=== PATIENT | female | born 1945 | race African-American/Black ===

== ENCOUNTER → 2017-06-30 | Day surgery (SDC) | payer BC ==
[~2017-06-30] MED LIST: CONTRAST GIVEN MC; PROPOFOL 40 ML IV
[2017-06-30 11:12] LABS: CREATINE KINASE 31 U/L (26-192)
[2017-06-30 11:12] LABS: BLOOD UREA NITROGEN 5 mg/dL (7-20)
[2017-06-30 12:01] LABS: GFR 85.3
[2017-06-30 12:01] LABS: CREATININE 0.8 mg/dL (0.6-1.0)
[2017-06-30] MEDS: IOHEXOL 240 MG/ML 50ML VIAL. PO ×2 (12:10)
[2017-06-30] MEDS: IOHEXOL 300 MG/ML 100ML VIAL. IV ×2 (12:10)
[2017-07-01 11:20] LABS: CEA 8.1 ng/mL (0.0-4.7)
== END | disposition home or self-care (01) ==
LOC: SURG 09:07
DX: K62.1 Rectal polyp (principal); K57.30 Diverticulosis of large intestine without perforation or abscess without bleeding; E78.00 Pure hypercholesterolemia, unspecified; I10 Essential (primary) hypertension; F41.9 Anxiety disorder, unspecified; Z87.39 Personal history of other diseases of the musculoskeletal system and connective tissue
CPT/HCPCS: 36415; 70491; 71260; 74177; 82378; 82550; 82565; 84520; 88305; J2704

== ENCOUNTER 2017-07-29 07:53 | Inpatient (IN) | payer BC ==
[~2017-07-29 07:53] MED LIST changes: -CONTRAST GIVEN MC; +HYDROmorphone 2 MG/ML VIAL IV; +LIDOCAINE 1% PF 2 ML VIAL. ID; +ONDANSETRON PF 4 MG/2 ML VIAL. IV; -PROPOFOL 40 ML IV; +fentaNYL PF VIAL 100 MCG/2 ML VIAL IV
[2017-07-29] MEDS ORDERED: PROPOFOL 20 ML IV (08:53)
[2017-07-29] MEDS ORDERED: LIDOCAINE 1% PF 5 ML VIAL. (08:53)
[2017-07-29] MEDS ORDERED: ROCURONIUM 50 MG/5 ML VIAL. ×2 (08:53→11:02)
[2017-07-29] MEDS ORDERED: DEXAMETHASONE SOD PHOS 20 MG/5 ML VIAL. (08:54)
[2017-07-29] MEDS ORDERED: ONDANSETRON PF 4 MG/2 ML VIAL. (08:54)
[2017-07-29] MEDS: IV RINGERS,LACTATED 1000ML 1,000 ML IV (08:58)
[2017-07-29 09:02] LABS: ADD MAN DIFF? NO
[2017-07-29] MEDS ORDERED: fentaNYL PF VIAL 100 MCG/2 ML VIAL ×4 (09:02→13:30)
[2017-07-29 09:15] LABS: ANION GAP 9 (6-14); BLOOD UREA NITROGEN 4 mg/dL (7-20); CARBON DIOXIDE 29 mmol/L (21-32); CHLORIDE 92 mmol/L (98-107); CREATININE 0.8 mg/dL (0.6-1.0); GFR 85.3; GLUCOSE 113 mg/dL (70-99); POTASSIUM 3.7 mmol/L (3.5-5.1); SODIUM 130 mmol/L (136-145)
[2017-07-29 09:16] LABS: BASO % 0 % (0-3); EOS # 0.1 x10^3/uL (0.0-0.7); EOS % 2 % (0-3); HEMATOCRIT 29.5 % (36.0-47.0); LYMPH # 0.9 x10^3/uL (1.0-4.8); LYMPH % 19 % (24-48); MEAN CORPUSCULAR HEMOGLOBIN 35 pg (25-35); MEAN CORPUSCULAR HGB CONC 34 g/dL (31-37); MEAN CORPUSCULAR VOLUME 103 fL (79-100); MONO # 0.6 x10^3/uL (0.0-1.1); MONO % 13 % (0-9); NEUT # 3.2 x10^3uL (1.8-7.7); NEUT % 66 % (31-73); PLATELET COUNT 201 x10^3/uL (140-400); RED BLOOD COUNT 2.88 x10^6/uL (3.50-5.40); RED CELL DISTRIBUTION WIDTH 15.4 % (11.5-14.5); WHITE BLOOD COUNT 4.8 x10^3/uL (4.0-11.0)
[2017-07-29] MEDS ORDERED: SUCCINYLCHOLINE 200 MG/10 ML VIAL. (10:00)
[2017-07-29] MEDS ORDERED: NEOSTIGMINE 10 MG/10 ML VIAL. (11:32)
[2017-07-29] MEDS ORDERED: GLYCOPYRROLATE 1 MG/5 ML VIAL. (11:33)
[2017-07-29] MEDS ORDERED: oxyCODONE/APAP 5/325 1 TAB TABLET PO (12:00)
[2017-07-29] MEDS ORDERED: 0.9 % SODIUM CHLORIDE 10 ML DISP.SYRIN. IV (12:00)
[2017-07-29] MEDS: KETOROLAC 15 MG/ML VIAL. IV ×2 (12:00→17:42)
[2017-07-29] MEDS ORDERED: MORPHINE SULFATE 4 MG/ML DISP.SYRIN. (12:12)
[2017-07-29] MEDS: MORPHINE SULFATE 4 MG/ML DISP.SYRIN. IV ×6 (12:13→21:03)
[2017-07-29] MEDS ORDERED: PROCHLORPERAZINE 10 MG/2 ML VIAL. (12:13)
[2017-07-29] MEDS: PROCHLORPERAZINE 10 MG/2 ML VIAL. IV (12:19)
[2017-07-29] MEDS: fentaNYL PF VIAL 100 MCG/2 ML VIAL IV ×4 (12:32→14:02)
[2017-07-29] MEDS: IV DEXTROSE 5%-LACT RINGERS 1,000 ML IV (17:36)
[2017-07-30] MEDS: KETOROLAC 15 MG/ML VIAL. IV ×5 (00:29→23:36)
[2017-07-30] MEDS: IV DEXTROSE 5%-LACT RINGERS 1,000 ML IV ×2 (06:23→23:37)
[2017-07-30 06:49] LABS: ADD MAN DIFF? NO
[2017-07-30 06:53] LABS: BASO % 0 % (0-3); EOS % 0 % (0-3); HEMATOCRIT 26.9 % (36.0-47.0); HEMOGLOBIN 9.2 g/dL (12.0-15.5); LYMPH # 0.8 x10^3/uL (1.0-4.8); LYMPH % 16 % (24-48); MEAN CORPUSCULAR HEMOGLOBIN 35 pg (25-35); MEAN CORPUSCULAR HGB CONC 34 g/dL (31-37); MEAN CORPUSCULAR VOLUME 103 fL (79-100); MONO # 0.6 x10^3/uL (0.0-1.1); MONO % 11 % (0-9); NEUT # 3.7 x10^3uL (1.8-7.7); NEUT % 73 % (31-73); PLATELET COUNT 172 x10^3/uL (140-400); RED BLOOD COUNT 2.61 x10^6/uL (3.50-5.40); RED CELL DISTRIBUTION WIDTH 15.2 % (11.5-14.5); WHITE BLOOD COUNT 5.1 x10^3/uL (4.0-11.0)
[2017-07-30] MEDS: MORPHINE SULFATE 4 MG/ML DISP.SYRIN. IV (17:41)
[2017-07-31] MEDS: IV DEXTROSE 5%-LACT RINGERS 1,000 ML IV (03:49)
[2017-07-31] MEDS: KETOROLAC 15 MG/ML VIAL. IV (05:50)
[2017-07-31] MEDS: MORPHINE SULFATE 4 MG/ML DISP.SYRIN. IV (11:03)
[2017-07-31] MEDS ORDERED: ACETAMINOPHEN PO (15:45)
[2017-07-31] MEDS ORDERED: DEXTROMETHORPHAN PO (15:45)
[2017-07-31] MEDS ORDERED: DOXYLAMINE PO (15:45)
[2017-07-31] MEDS ORDERED: [UNRECOGNIZED DRUG - OTHER] PO (15:45)
[2017-07-31] MEDS: hydroCHLOROthiazide 12.5 MG CAPSULE PO (16:00)
[2017-07-31] MEDS: ALPRAZolam 0.5 MG TABLET PO (16:45)
[2017-07-31] MEDS: LISINOPRIL 20 MG TABLET PO (16:46)
[2017-08-01] MEDS: IV DEXTROSE 5%-LACT RINGERS 1,000 ML IV ×2 (03:21→06:29)
[2017-08-01] MEDS: hydroCHLOROthiazide 12.5 MG CAPSULE PO (08:43)
[2017-08-01] MEDS: oxyCODONE/APAP 5/325 1 TAB TABLET PO ×2 (08:43→16:59)
[2017-08-01] MEDS: LISINOPRIL 20 MG TABLET PO (08:43)
[2017-08-02] MEDS: IV DEXTROSE 5%-LACT RINGERS 1,000 ML IV ×3 (08:18→21:39)
[2017-08-02] MEDS: hydroCHLOROthiazide 12.5 MG CAPSULE PO (08:21)
[2017-08-02] MEDS: LISINOPRIL 20 MG TABLET PO (08:21)
[2017-08-02] MEDS: oxyCODONE/APAP 5/325 1 TAB TABLET PO ×2 (08:22→16:43)
[2017-08-02] MEDS: ALPRAZolam 0.5 MG TABLET PO (16:44)
[2017-08-03] MEDS: hydroCHLOROthiazide 12.5 MG CAPSULE PO (08:46)
[2017-08-03] MEDS: LISINOPRIL 20 MG TABLET PO (08:46)
[2017-08-03] MEDS: ONDANSETRON PF 4 MG/2 ML VIAL. IV (08:48)
[2017-08-03] MEDS: ALPRAZolam 0.5 MG TABLET PO ×2 (09:05→17:24)
[2017-08-03] MEDS: oxyCODONE/APAP 5/325 1 TAB TABLET PO (09:05)
[2017-08-03] MEDS: IV DEXTROSE 5%-LACT RINGERS 1,000 ML IV (11:10)
[2017-08-04] MEDS: IV DEXTROSE 5%-LACT RINGERS 1,000 ML IV ×2 (04:35→14:29)
[2017-08-04] MEDS: hydroCHLOROthiazide 12.5 MG CAPSULE PO (08:14)
[2017-08-04] MEDS: LISINOPRIL 20 MG TABLET PO (08:15)
[2017-08-05] MEDS: IV DEXTROSE 5%-LACT RINGERS 1,000 ML IV ×2 (03:49→17:09)
[2017-08-05] MEDS: hydroCHLOROthiazide 12.5 MG CAPSULE PO (08:24)
[2017-08-05] MEDS: LISINOPRIL 20 MG TABLET PO (08:24)
[2017-08-06] MEDS: hydroCHLOROthiazide 12.5 MG CAPSULE PO (08:47)
[2017-08-06] MEDS: LISINOPRIL 20 MG TABLET PO (08:47)
== END 2017-08-06 11:10 | disposition home or self-care (01) | DRG 330 ==
LOC: OPSVCIP 07:53 → 4 NORTH 14:02
PROC: 0DTN0ZZ Resection of Sigmoid Colon, Open Approach (ICD-10-PCS; principal; 2017-07-29 09:30)
DX: C18.7 Malignant neoplasm of sigmoid colon (principal); E87.1 Hypo-osmolality and hyponatremia; C80.1 Malignant (primary) neoplasm, unspecified; D63.0 Anemia in neoplastic disease; D63.8 Anemia in other chronic diseases classified elsewhere
CPT/HCPCS: 36415; 80048; 85025; 88309; 97110-GP; 97116-GP; 97162-GP; 97166-GO; 97530-GP; 97535-GO; J0330; J0694; J0780; J1100; J1885; J2270; J2405; J2704; J2710; J3010; J3490; J7120

== ENCOUNTER → 2017-12-24 | Outpatient (CLI) | payer BC ==
[2017-08-06 08:47] VITALS: BP 133/68
[~2017-12-24] MED LIST changes: +ALPR0.5T6 PO; +CONTRAST GIVEN. MC PRN; +D ME PO; -HYDROmorphone 2 MG/ML VIAL IV; +IOHEXOL 300 MG/ML 100ML VIAL. IV ONE; -LIDOCAINE 1% PF 2 ML VIAL. ID; +LISI1TAB5 PO; -ONDANSETRON PF 4 MG/2 ML VIAL. IV; +OXYC-323 PO; -fentaNYL PF VIAL 100 MCG/2 ML VIAL IV; +nyquil
--- NOTE | 2017-12-24 12:39 | RAD ---
CLINICAL HISTORY: F/U COLON CA AND LUNG NODULE PREV SENT INJ 75ML OMNI 300 . COMPARISON: 06/30/2017 TECHNIQUE: CT of the chest following the administration of 75 mL of Omnipaque 300 intravenous contrast. Coronal and sagittal reformatted images were generated. ---PQRS compliance statement - One or more of the following individualized dose reduction techniques were utilized for this study: 1. Automated exposure control 2. Adjustment of the mA and/or kV according to patient size 3. Use of iterative reconstruction technique--- FINDINGS: The heart is not enlarged. No pericardial effusion. No mediastinal or hilar lymphadenopathy. No axillary lymphadenopathy. No pleural effusion or pneumothorax. Previously seen bibasilar parenchymal opacities have significantly improved. A 3 mm middle lobe lung nodule (series 2 image 38) is grossly stable to prior exam 06/30/2017. A 4 mm right middle lobe lung nodule (series 2 image 36) previously measured 3 mm. No definite new lung nodule or mass is seen. Upper abdomen: Gallstones are seen. Degenerative changes of the spine are seen. Otherwise visualized osseous structures are unremarkable. IMPRESSION: 1. The previously seen middle lobe lung nodules are essentially stable in size. Recommend risk stratification and appropriate follow-up, consider 6 months. 2. Cholelithiasis Electronically signed by: Jason Encinas MD (12/24/2017 12:36 PM) [facility]
== END | disposition home or self-care (01) ==
LOC: CT 10:18
PROVIDERS: ATTEND Internal Medicine Hematology & Oncology
DX: C18.7 Malignant neoplasm of sigmoid colon (principal); K80.80 Other cholelithiasis without obstruction
CPT/HCPCS: 71260; Q9967

== ENCOUNTER → 2018-01-07 | Outpatient (CLI) | payer BC ==
[2017-08-06 08:47] VITALS: BP 133/68
[~2018-01-07] MED LIST changes: -CONTRAST GIVEN. MC PRN; -IOHEXOL 300 MG/ML 100ML VIAL. IV ONE
[2018-01-07] MEDS: IOHEXOL 240 MG/ML 50ML VIAL. PO ONE (09:45)
[2018-01-07] MEDS: IOHEXOL 300 MG/ML 100ML VIAL. IV ONE (11:15)
--- NOTE | 2018-01-07 12:52 | RAD ---
CT abdomen and pelvis with contrast History: Restaging sigmoid colon cancer Technique: After the administration of oral and intravenous contrast, CT imaging was performed of the abdomen and pelvis. Multiplanar images are reviewed. Exposure: One or more of the following individualized dose reduction techniques were utilized for this examination: 1. Automated exposure control 2. Adjustment of the mA and/or kV according to patient size 3. Use of iterative reconstruction technique. Comparison: 06/30/2017 Findings: There are a couple of small right middle lobe nodules, more superior focus 0.3-0.4 cm larger as previously 0.1 cm in size. Another focus is more similar in appearance. There are some small-containing Bochdalek hernias bilaterally. There is no new abnormality identified of the liver, spleen, pancreas. There is again cholelithiasis. Both kidneys enhance, no hydronephrosis. There is no adrenal nodularity. Bowel is not significantly dilated. There is again moderate to severe colonic diverticulosis. There is nonspecific relative wall thickening of the mid sigmoid colon. Normal appendix is visualized. There is no free air or free fluid. Previously seen density of the right pelvis is less apparent on this exam, probably component of the adnexa. There is similar 1 cm transverse by 1.5 cm AP focus of somewhat oblong density in the lateral right pelvis as best seen axial image 66 series 2, previously about 2.2 cm AP by 1 cm transverse, overall fairly similar. There is degenerative disc disease greatest L4-5 and L5-S1. There is grade 1 anterior spondylolisthesis L4-5. There is multilevel lumbar facet degenerative change. There is probable moderate spinal stenosis L4-5 and to lesser degree at L3-4. Impression: 1. Focus of oblong density lateral right pelvis is fairly similar, another focus of low density more anteriorly in the right pelvis less apparent. There is no new significant lymphadenopathy or new abnormality of the liver or adrenal glands. There is again colonic diverticulosis. There is some nonspecific relative wall thickening of the mid sigmoid colon. 2. There are again some small right middle lobe pulmonary nodules, one of which is larger in the interval. Given the larger nodule, dedicated chest CT to evaluate for other nodules is recommended. 3. There is again cholelithiasis. Electronically signed by: Aguila Remy MD (01/07/2018 12:48 PM) [facility]
== END | disposition home or self-care (01) ==
LOC: CT 09:33
PROVIDERS: ATTEND Internal Medicine Hematology & Oncology
DX: K80.20 Calculus of gallbladder without cholecystitis without obstruction (principal); K57.30 Diverticulosis of large intestine without perforation or abscess without bleeding; M51.37 Other intervertebral disc degeneration, lumbosacral region; M43.16 Spondylolisthesis, lumbar region; I10 Essential (primary) hypertension; E78.00 Pure hypercholesterolemia, unspecified; Z86.2 Personal history of diseases of the blood and blood-forming organs and certain disorders involving the immune mechanism; Z87.39 Personal history of other diseases of the musculoskeletal system and connective tissue
CPT/HCPCS: 74177; Q9966; Q9967

== ENCOUNTER → 2018-04-08 | Outpatient (CLI) | payer BC ==
[2017-08-06 08:47] VITALS: BP 133/68
[~2018-04-08] MED LIST changes: -OXYC-323 PO; +OXYC1TAB15 PO
--- NOTE | 2018-04-08 13:57 | KCIC ---
Bilateral digital screening mammograms: Reason for examination: Routine screening. Comparison is made to previous studies dated 03/11/2017 and 01/19/2015. Interpretation was made with the benefit of CAD. The skin and nipples show no abnormalities. No abnormal axillary lymph nodes are seen. The breast parenchyma shows scattered fibroglandular density. (Breast density: Category B.) There are intramammary lymph nodes again seen. There are no new dominant masses, suspicious calcifications or architectural distortions. Impression: No evidence of malignancy. Recommend routine screening. BI-RADS Category 2: Benign. "Our facility is accredited by the [employer] Mammography Program." This patient's information has been entered into a reminder system for the patient to be notified with the results of her examination and a target date for the next mammogram. Electronically signed by: Porsche Sommers MD (04/08/2018 1:54 PM) [facility]
== END | disposition home or self-care (01) ==
LOC: KCIC MAMMO 10:02
PROVIDERS: ATTEND Family Medicine
DX: Z12.31 Encounter for screening mammogram for malignant neoplasm of breast (principal)
CPT/HCPCS: 77067

== ENCOUNTER → 2018-04-20 | Outpatient (CLI) | payer BC ==
[2017-08-06 08:47] VITALS: BP 133/68
[~2018-04-20] MED LIST changes: +CONTRAST GIVEN. MC PRN; +IOHEXOL 240 MG/ML 50ML VIAL. PO ONE; +IOHEXOL 300 MG/ML 100ML VIAL. IV ONE
--- NOTE | 2018-04-20 16:59 | RAD ---
Bone Scintigraphy - Whole Body: . Radiopharmaceutical: 25.4 mCi Tc-99m HDP I.V. History: History of colon cancer. Comparison: CT chest abdomen pelvis same day exam. Findings: Delayed anterior and posterior whole body bone scintigraphy was performed. Faint radiotracer uptake identified in the mid thoracic spine probably due to degeneration. Focal radiotracer identified in the bilateral midfoot region likely due to degeneration. Impression: Degenerative changes. No evidence of osteoblastic skeletal metastasis. Electronically signed by: Bhargav Damon MD (04/20/2018 4:55 PM) [place] [id number]
--- NOTE | 2018-04-21 10:34 | RAD ---
CT study of the chest and abdomen and pelvis with contrast Clinical indications: Colon cancer. Follow-up study. COMPARISON: December 24, [address] and January 07, 2018 CT abdomen and pelvis. TECHNIQUE: After IV infusion of 75 cc of Omnipaque 300, helical CT scanning of the chest and abdomen and pelvis was performed. GI contrast was administered per mouth. PQRS compliance Statement One or more of the following individualized dose reduction techniques were utilized for this study: 1. Automated exposure control 2. Adjustment of the mA and/or kV according to patient size 3. Use of iterative reconstruction technique CHEST CT: No enlarging thoracic lymphadenopathy is evident. The heart size mildly enlarged. No pericardial effusion is seen. Mild calcified atheromatous disease of coronary arteries is seen. No focal aneurysmal dilatation or dissection of the thoracic aorta is seen. No pleural effusion or pneumothorax is seen. There is a lung nodule within the lateral segment of the right middle lobe seen on image 34 and series 2 which measures 8 mm in size. This measured 4 mm in size on the previous study and therefore has increased in size. Adjacent to it is a smaller subpleural nodule which measures 4 mm and is stable. There is some nodular scarring within the medial segment of the right middle lobe which is stable. There is some mild scarring within the posterior costophrenic angle on the right side which is stable. There is some mild left lung base linear scarring which is stable. There is a focal hernia of the posterior left hemidiaphragm containing only fat in this area which is stable. There is some mild nodular scarring within the inferior segment lingula which is stable. No new lung nodule or new lung mass or new consolidative lung infiltrate is seen. The proximal bronchial tree is patent. No lytic process is seen. IMPRESSION: Increase in right middle lobe lung nodule since December 24, 2017. It now measures 8 mm. No new lung nodules or lung infiltrates are seen. Mild cardiomegaly. Mild calcified atheromatous disease of the coronary arteries. ABDOMEN AND PELVIS CT: Diffuse fatty infiltration of the liver is seen. There is a new hypodense nodule within the posterior segment of the right lobe of liver measuring 2.3 cm in size. The spleen is not enlarged. Pancreas is normal. Gallstones are seen within the gallbladder. No extrahepatic biliary ductal dilatation is seen. No adrenal mass is evident. No hydronephrosis or renal mass or perinephric fluid collection is seen on either side. Urinary bladder is not distended. No uterine mass or fibroid is evident. No dominant ovarian cyst or mass is seen. No focal aneurysmal dilatation of the abdominal aorta is seen. No enlarging abdominal or pelvic lymphadenopathy is evident. Again seen is a 1.5 cm nodule or lymph node within the lateral aspect of the right side of the pelvis seen on image 72 and series 4 which is unchanged from the previous study. No new or enlarging abdominal/pelvic lymphadenopathy is evident. Colonic diverticulosis is again evident. There is an increase in wall thickening of the hepatic flexure. There is focal wall thickening of the sigmoid colon which is chronic and has not changed significantly. This may be related to chronic diverticulosis with muscle hypertrophy. However, recommend colonoscopy if this has not been performed recently to evaluate these 2 areas. No obstructive bowel pattern is evident. No free air or free fluid or mesenteric edema is evident. No lytic process is seen. IMPRESSION: New 2.3 cm lesion of the right lobe of the liver consistent with metastatic disease. Wall thickening of the hepatic flexure and sigmoid colon. Recommend colonoscopy if this has not been performed recently. Stable right sided 1.5 cm pelvic lymph node. No enlarging or new abdominal/pelvic lymphadenopathy is seen. Cholelithiasis. Electronically signed by: Reji Richardson MD (04/21/2018 10:30 AM) [facility]
== END | disposition home or self-care (01) ==
LOC: NM 08:45
PROVIDERS: ATTEND Internal Medicine Hematology & Oncology
DX: K80.20 Calculus of gallbladder without cholecystitis without obstruction (principal); K57.30 Diverticulosis of large intestine without perforation or abscess without bleeding; I51.7 Cardiomegaly; K76.0 Fatty (change of) liver, not elsewhere classified; K76.89 Other specified diseases of liver; I25.10 Atherosclerotic heart disease of native coronary artery without angina pectoris; R59.0 Localized enlarged lymph nodes; Z85.038 Personal history of other malignant neoplasm of large intestine
CPT/HCPCS: 71260; 74177; 78306; 96374; A9503; Q9966; Q9967

== ENCOUNTER → 2018-04-26 | Day surgery (SDC) | payer BC, MEDICARE ==
[~2018-04-26] MED LIST changes: -CONTRAST GIVEN. MC PRN; +HYDR-3164 PO; +HYDROmorphone 2 MG/ML VIAL IV PRN; -IOHEXOL 240 MG/ML 50ML VIAL. PO ONE; -IOHEXOL 300 MG/ML 100ML VIAL. IV ONE; +IV RINGERS,LACTATED 1000ML 1,000 ML IV SCH; +LIDOCAINE 1% PF 2 ML VIAL. ID PRN; +LISI-334 PO; +LISI30TA4 PO; +MORPHINE SULFATE 2 MG/ML VIAL. IV PRN; +ONDANSETRON PF 4 MG/2 ML VIAL. IV PRN; +PROCHLORPERAZINE 10 MG/2 ML VIAL. IV PRN; +PROPOFOL 40 ML IV ONE; +fentaNYL PF VIAL 100 MCG/2 ML VIAL IV PRN
--- NOTE | 2018-04-26 13:34 | PDOC1 ---
History and Physical Date of Admission Date of Admission DATE: 04/26/18 TIME: 13:29 Source Source: Chart review, Patient History of Present Illness History of Present Illness 72 y/o female post-sigmoid resection for cancer 07/2017. T3 tumor due to direct extension, but negative LN's. Got no adjuvant chemoRx. Recent imaging with possible liver and/or lung mets. Also noted "mural thickening" near hepatic flexure. Here for investigation of this and to evaluate for anastomotic recurrence. No complaints. Past Medical History Cardiovascular: HTN, Hyperlipidemia Psych: Anxiety Past Surgical History Past Surgical History: Colon Resection, Other Family History Family History: No Significant Social History Smoke: No ALCOHOL: none Drugs: None Current Medications Current Medications Current Medications Propofol 40 ml @ As Directed STK-MED ONCE IV ; Start 04/26/18 at 12:50; Stop 04/26/18 at 12:51; Status DC Ondansetron HCl (Zofran) 4 mg PRN Q6HRS PRN IV NAUSEA/VOMITING; Start at 13:00; Stop 04/26/18 at 18:00 Fentanyl Citrate (Fentanyl 2ml Vial) 25 mcg PRN Q5MIN PRN IV MILD PAIN; Start 04/26/18 at 13:00; Stop 04/26/18 at 18:00 Fentanyl Citrate (Fentanyl 2ml Vial) 50 mcg PRN Q5MIN PRN IV MODERATE TO SEVERE PAIN; Start 04/26/18 at 13:00; Stop 04/26/18 at 18:00 Morphine Sulfate (Morphine Sulfate) 1 mg PRN Q10MIN PRN IV SEVERE PAIN; Start 04/26/18 at 13:00; Stop 04/26/18 at 18:00 Ringer's Solution 1,000 ml @ 30 mls/hr Q24H IV ; Start 04/26/18 at 12:58; Stop 04/27/18 at 00:57 Lidocaine HCl (Xylocaine-Mpf 1% 2ml Vial) 2 ml 1X PRN PRN ID IV START; Start 04/26/18 at 13:00; Stop 04/26/18 at 18:00 Hydromorphone HCl (Dilaudid) 0.5 mg PRN Q10MIN PRN IV SEV PAIN, Second choice; Start 04/26/18 at 13:00; Stop 04/26/18 at 18:00 Prochlorperazine Edisylate (Compazine) 5 mg PACU PRN PRN IV NAUSEA, MRX1; Start 04/26/18 at 13:00; Stop 04/26/18 at 18:00 Active Scripts Active Percocet 5-325 Mg Tablet (Oxycodone/Acetaminophen) 1 Each Tablet 1 Tab PO Q4- 6HRS Reported Nighttime Cold & Flu Liquid (D-Methorphan/Acetamin/Doxylamn) 355 Ml Liquid 0 PO PRN PRN Alprazolam 0.5 Mg Tablet 0.5 Mg PO PRN Q6HRS PRN Lisinopril-Hctz 20-12.5 Mg Tab (Lisinopril/Hydrochlorothiazide) 1 Each Tablet 1 Tab PO DAILY Allergies Allergies: Coded Allergies: No Known Drug Allergies (Unverified , 04/26/18) ROS Review of System Otherwise non-contributory. Physical Exam General: Alert, Oriented X3, Cooperative HEENT: EOMI Lungs: Clear to auscultation Heart: S1S2, RRR, no gallops, no murmurs Abdomen: Normal bowel sounds, Soft, No tenderness, No hepatosplenomegaly, No masses Rectal Exam: deferred Extremities: No cyanosis, No edema Skin: No significant lesion Neuro: Normal gait, Normal speech, Strength at 5/5 X4 ext, Normal tone, Sensation intact, Cranial nerves 3-12 NL, Reflexes 2+ Psych/Mental Status: Mental status NL, Mood NL Vitals Vitals Vital Signs Date Time Temp Pulse Resp B/P (MAP) Pulse Ox O2 Delivery O2 Flow Rate FiO2 04/26/18 13:02 97.7 87 20 98 97.7 VTE Prophylaxis Ordered VTE Prophylaxis Devices: No VTE Pharmacological Prophylaxi: No Assessment/Plan Assessment/Plan IMP: H/o colon cancer with abnormal imaging. PLAN: colonoscopy. SLIM TRENT MD Apr 26, 2018 13:34
--- NOTE | 2018-04-26 14:12 | PDOC4 ---
PROCEDURE Procedure EGD/biopsies Indication: h/o CRC post-resection/recent abnormal imaging. Meds: per anesthesia Findings: ANGEL normal. "Scope advanced to cecum. Mucosa normal. Multiple diverticula, hepatic flexure to sigmoid. Anastomosis in distal sigmoid with associated 5-6 mm polyp , biopsied off. Second polyp just distal to first, ~4mm, also biopsied off. Small internal hemorrhoids noted on retroflex. Exam otherwise normal, including hepatic flexure area. Isaac. well. IMP: Post colectomy Small polyps Diverticulosis Hemorrhoids REC: Await path. F/u in 2 weeks. Resume home meds, diet. Depending on course, consider repeat exam in 3-5 years; if advancing metastatic disease would not do. SLIM TRENT MD Apr 26, 2018 14:11
[2018-04-26 14:32] VITALS: BP 178/102
--- NOTE | 2018-04-27 14:10 | PATHOLOGY ---
[facility] Accession Number: [id number] . 01 Material submitted: . RECTOSIGMOID BIOPSY . 01 Clinical history: . Hx colon cancer . 02 Diagnosis: Colorectal biopsies, rectosigmoid colon: - Tubular adenomas. . ([facility]; 04/27/18) [facility]/04/27/2018 . 02 Comment: There is no high grade dysplasia or evidence of malignancy. . ([facility]:mm; 04/27/18) . 02 Electronically signed: . Karri Box MD, Pathologist NPI- [id number] . 01 Gross description: . Received in formalin labeled "Abanishe, Alana, recto-sigmoid BX," are multiple segments of [place] oca soft tissue measuring 1.3 x 0.5 x 0.1 cm in aggregate dimensions. The specimen is filtered and entirely submitted in cassette A1. ([facility]; 04/26/2018) TOB/TOB . 02 Pathologist provided ICD-10: D12.7 . 02 CPT . 198407 Specimen Comment: A courtesy copy of this report has been sent to Specimen Comment: [phone], . Specimen Comment: Report sent to / DR TRENT Specimen Comment: A duplicate report has been generated due to demographic updates. Performed at: 01 [facility] [address], [place] [id number] MD Luis Miguel Velazquez MD Phone: [phone] Performed at: 02 [facility] [address] [place], [place] [id number] MD Karri Box MD Phone: [phone]
== END | disposition home or self-care (01) ==
LOC: SURG 12:42
PROVIDERS: ATTEND Internal Medicine Gastroenterology
DX: Z08 Encounter for follow-up examination after completed treatment for malignant neoplasm (principal); D12.7 Benign neoplasm of rectosigmoid junction; K64.0 First degree hemorrhoids; K57.30 Diverticulosis of large intestine without perforation or abscess without bleeding; I10 Essential (primary) hypertension; E78.5 Hyperlipidemia, unspecified; F41.9 Anxiety disorder, unspecified; Z90.49 Acquired absence of other specified parts of digestive tract; Z98.890 Other specified postprocedural states; Z79.899 Other long term (current) drug therapy; Z98.0 Intestinal bypass and anastomosis status; Z85.038 Personal history of other malignant neoplasm of large intestine
CPT/HCPCS: 45380; 88305; J2704

== ENCOUNTER 2018-04-30 09:17 | Day surgery (SDC) | payer BC ==
[~2018-04-30] VITALS: Ht 154.9 cm; Wt 71.9 kg
[~2018-04-30 09:17] MED LIST changes: -HYDR-3164 PO; -PROPOFOL 40 ML IV ONE
[2018-04-30] MEDS ORDERED: HEPARIN for IV BOLUS 10,000 UNIT/10 ML VIAL. ONE (09:32)
[2018-04-30] MEDS ORDERED: BUPIVAC MPF-EPI 0.5%-1:200000 30 ML VIAL. ONE (09:32)
[2018-04-30] MEDS ORDERED: HEPARIN PF 500 UNIT/5 ML DISP.SYRIN. IV ONE (09:32)
[2018-04-30] MEDS ORDERED: BUPIVACAINE 0.25% 50 ML VIAL. ONE (09:35)
[2018-04-30] MEDS ORDERED: ONDANSETRON PF 4 MG/2 ML VIAL. ONE (10:18)
[2018-04-30] MEDS ORDERED: LIDOCAINE 2% PF Vial for OR 5 ML VIAL. ONE (10:18)
[2018-04-30] MEDS ORDERED: fentaNYL PF VIAL 100 MCG/2 ML VIAL ONE (10:18)
[2018-04-30] MEDS ORDERED: PROPOFOL 20 ML IV ONE (10:18)
[2018-04-30] MEDS ORDERED: DEXAMETHASONE SOD PHOS 20 MG/5 ML VIAL. ONE (10:18)
[2018-04-30] MEDS ORDERED: ceFAZolin 2GM PREMIX 2 GM/50 ML BAG IV ONE (12:00)
--- NOTE | 2018-04-30 12:08 | PDOC4 ---
Operative Note Operative Note Date: 04/30/2018 Preoperative diagnosis: Colon cancer and venous insufficiency Postoperative diagnosis: Same Procedure: Right side Port-A-Cath placement Surgeon: Avery Specimen: None Dictation: Patient is a 72-year-old female being treated for colorectal cancer is needing permanent IV access for chemotherapy. Procedure of Port-A-Cath placement was explained to the patient detail worse benefits were also discussed include bleeding infection alternatives to this procedure also discussed with the patient seemed to understand and able verbal and written consent had the procedure performed. Patient was taken to the operating room placed in supine position general anesthesia was initiated once patient was sedated and intubated her neck and chest were prepped and draped usual sterile fashion using ChloraPrep. An area over the right deltopectoral groove was injected with quarter percent Marcaine plain incision was made with 15 blade scalpel was carried down through subcutaneous tissue using electrocautery right hemostasis the cephalic vein was visualized and controlled proximally distally with silk ligatures. The vein was partially opened with a11 blade scalpel and a Seldinger wire was placed under fluoroscopy into the superior vena cava. Peel- away dilator was placed over the wire under fluoroscopy and in the catheter was placed through the peel-away which was then removed. Port was placed on the end of the catheter this was sewn into place with 3-0 Prolene catheter was then accessed there was good blood return was easily flushed with hep saline. Catheter was then locked with Hep-Lock 1000 units per milliliter used to thousand units. Wound was then closed in 2 layers a deep layer running 3-0 Vicryl and the skin was approximated for subcutaneous and Monocryl Mastisol Steri-Strips and island dressing were applied. Patient was awakened and extubated in the operating room taken to recovery in stable condition all sponge instrument needle counts listed as correct estimated blood loss 5 mL. LATHA KNIGHT MD Apr 30, 2018 12:08
--- NOTE | 2018-04-30 12:09 | DISCH ---
DISCHARGE INSTRUCTIONS Condition on Discharge Condition on Discharge: Stable Activity After Discharge Activity Instructions for Disc: Activity as tolerated Diet after Discharge Diet after Discharge: Regular Wound Incision Care Other wound/incision instructi: May shower in 24 hours Contacting the after DC Call your doctor for: If your condition worsens Follow-Up Follow up with: Dr. Knight in 2 weeks LATHA KNIGHT MD Apr 30, 2018 12:09
[2018-04-30] MEDS ORDERED: HYDR-3164 PO (12:26)
[2018-04-30 13:00] VITALS: BP 192/101
--- NOTE | 2018-05-05 17:34 | RAD ---
EXAM: Chest, 4 views. HISTORY: Portacatheter placement. COMPARISON: None. FINDINGS: 4 fluoroscopic images of the chest are obtained. Images demonstrate interval placement of a port catheter with the tip in the superior vena cava. The total fluoroscopy time is not submitted with the images. IMPRESSION: Fluoroscopic imaging for procedural guidance during portacatheter placement. Electronically signed by: Rosita Linares MD (05/05/2018 5:30 PM) [facility]
== END 2018-04-30 13:19 | disposition home or self-care (01) ==
LOC: SURG 09:17
PROVIDERS: ATTEND Surgery
DX: C18.7 Malignant neoplasm of sigmoid colon (principal); I87.2 Venous insufficiency (chronic) (peripheral); I10 Essential (primary) hypertension; Z79.899 Other long term (current) drug therapy; Z90.49 Acquired absence of other specified parts of digestive tract; Z72.89 Other problems related to lifestyle
CPT/HCPCS: 36571; 77001; A7015; C1788; J0690; J1100; J1644; J2001; J2405; J2704; J3010; J3490; 36556

== ENCOUNTER → 2018-07-28 | Outpatient (CLI) | payer BC ==
[~2018-07-28] MED LIST changes: +CONTRAST GIVEN. MC PRN; +HYDR-3164 PO; -HYDROmorphone 2 MG/ML VIAL IV PRN; +IOHEXOL 240 MG/ML 50ML VIAL. PO ONE; +IOHEXOL 300 MG/ML 100ML VIAL. IV ONE; -IV RINGERS,LACTATED 1000ML 1,000 ML IV SCH; -LIDOCAINE 1% PF 2 ML VIAL. ID PRN; -MORPHINE SULFATE 2 MG/ML VIAL. IV PRN; -ONDANSETRON PF 4 MG/2 ML VIAL. IV PRN; -PROCHLORPERAZINE 10 MG/2 ML VIAL. IV PRN; -fentaNYL PF VIAL 100 MCG/2 ML VIAL IV PRN
--- NOTE | 2018-07-28 10:52 | RAD ---
CT of the chest, abdomen, and pelvis 07/28/2018 INDICATION: History of colon cancer. COMPARISON STUDY: CT of the chest abdomen and pelvis April 20, 2018. TECHNIQUE: Multidetector CT imaging of the chest, abdomen, and pelvis was performed following the administration of IV and enteric contrast. FINDINGS: CHEST: Heart size is normal. No pericardial effusion is identified. Thoracic aorta is unremarkable in course and caliber. Scattered small mediastinal lymph nodes are noted without evidence of pathologically enlarged mediastinal adenopathy. There is no pneumothorax, pleural effusion, or acute consolidative infiltrate identified. Probable small diaphragmatic hernia is seen in the left lung base. Subpleural nodule in the right middle lobe has decreased in size and conspicuity in the interim since prior exam from 6.5 to 4.5 mm. Adjacent smaller subpleural nodule is grossly stable. No new pulmonary masses or nodules are identified. Hypoattenuating lesion in the inferior right liver has also decreased in size from 2.4 cm in maximal diameter to 1.8 cm. Liver is otherwise unremarkable in appearance. Cholelithiasis is noted. The spleen is grossly normal in appearance. The adrenal glands are normal in appearance. Kidneys demonstrate stable mild atrophic changes. Otherwise unremarkable. Pancreas is grossly unremarkable. No evidence of bowel obstruction is identified. Extensive descending and sigmoid colonic diverticulosis is noted. The appendix is unremarkable in appearance. Apparent bowel wall thickening involving the hepatic flexure has resolved in the interim. Recommend correlation with findings on recent colonoscopy. Mild focal thickening of the sigmoid colonic wall is again seen which appears grossly similar. Findings nonspecific. Bladder is grossly unremarkable. Calcification in the expected region of the left ovary is noted. This may represent a small ovarian dermoid. The appearance is unchanged. No acute osseous changes are identified. No free fluid or free air seen in the interim pelvis. A small fat filled hernia identified in the inferior abdominal midline, unchanged. No acute osseous changes are seen. IMPRESSION: 1. Interval decreased size right middle lobe nodule. Interval decreased size right hepatic lesion. Findings suggest response to treatment. 2. Previously seen right hepatic flexure colonic wall thickening is not seen on today's study. 3. Mild residual focal thickening of the sigmoid colonic wall is unchanged. Extensive diverticular disease again noted. 4. Continued imaging surveillance recommended CT DOSING PQRS STATEMENT: One or more of the following individualized dose reduction techniques were utilized for this examination: 1. Automated exposure control 2. Adjustment of the mA and/or kV according to patient size 3. Use of iterative reconstruction technique Electronically signed by: Wyatt Mendosa MD (07/28/2018 10:49 AM) [facility]
== END | disposition home or self-care (01) ==
LOC: CT 08:09
PROVIDERS: ATTEND Internal Medicine Hematology & Oncology
DX: K80.20 Calculus of gallbladder without cholecystitis without obstruction (principal); K57.30 Diverticulosis of large intestine without perforation or abscess without bleeding; K76.89 Other specified diseases of liver; R91.1 Solitary pulmonary nodule; N26.1 Atrophy of kidney (terminal); Z85.038 Personal history of other malignant neoplasm of large intestine
CPT/HCPCS: 71260; 74177; Q9966; Q9967

== ENCOUNTER → 2018-11-01 | Outpatient (CLI) | payer BC ==
--- NOTE | 2018-11-01 09:39 | RAD ---
Examination: CT CHEST ABD PELVIS W/CONTRAST History: Malignant neoplasm of the sigmoid colon Comparison/Correlation: 12/24/2017 CT chest with contrast, 01/07/2018 CT abdomen and pelvis with oral contrast, 04/20/2018 CT chest abdomen and pelvis with contrast, 07/28/2018 CT chest abdomen and pelvis with contrast Findings: Axial images of the chest abdomen and pelvis were obtained following IV and oral contrast menstruation. Sagittal and coronal reformatted images were provided. Right-sided infusion port catheter is present. Small left pleural effusion is The interval. There is a 0.4 cm diameter low-density nodule involving the right middle lobe adjacent to the pleura which has remained stable. Minimal subpleural linear scarring is present on axial image 34 and is mildly decreased compared to the prior CT exam of 07/28/2018. This corresponds to site of the previously seen nodule on 04/20/2018 which measured 0.8 cm. This finding currently measures 0.34 cm x 0.2 cm. No new pulmonary nodules or infiltrates. No enlarged thoracic lymph nodes. Right hepatic lobe subcapsular hypoenhancing lesion again seen with current measurement of 1.3 cm x 1.4 cm on axial image 25 of series 4. This represents a mild decrease in size by 0.3 cm diameter. The prior exam of 07/28/2018. No new hepatic lesion. Cholelithiasis again noted without biliary dilatation. Spleen is normal. Pancreas is unremarkable. Adrenal glands are normal. Kidneys are unremarkable. No extraluminal gas. Diverticulosis is evident involving the colon. Suture material involves the mid sigmoid colon. Focal wall thickening involving the sigmoid colon just proximal to the suture material is similar to the previous exam. Appendix is normal. No ascites or pelvic free fluid. Urinary bladder is unremarkable. Uterus is grossly unremarkable. There is a right pelvic sidewall lymph node measuring 0.8 cm x 1.9 cm on axial image 68 and it is similar in size compared to 07/28/2018. More superiorly along the right pelvic sidewall, there is a new pelvic sidewall lymph node measuring 1.6 cm x 1 cm on axial image 61 of series 4. Impression: There is a small new left pleural effusion. Continued decrease of a right middle lobe juxtapleural nodule or residual scarring. Low right pelvic sidewall lymph node is unchanged. There is a new right pelvic sidewall lymph node more superiorly in the interval however and this is borderline to slightly enlarged. Decrease in size of right hepatic lobe subcapsular metastatic lesion. Cholelithiasis. Diverticulosis. PQRS Compliance Statement: One or more of the following individualized dose reduction techniques were utilized for this examination: 1. Automated exposure control 2. Adjustment of the mA and/or kV according to patient size 3. Use of iterative reconstruction technique Electronically signed by: Wesly West MD (11/01/2018 9:37 AM) [id number]
== END | disposition home or self-care (01) ==
LOC: CT 07:26
PROVIDERS: ATTEND Internal Medicine Hematology & Oncology
DX: C18.7 Malignant neoplasm of sigmoid colon (principal); K80.20 Calculus of gallbladder without cholecystitis without obstruction; K57.90 Diverticulosis of intestine, part unspecified, without perforation or abscess without bleeding; J34.89 Other specified disorders of nose and nasal sinuses; J90 Pleural effusion, not elsewhere classified; R91.1 Solitary pulmonary nodule; K76.9 Liver disease, unspecified; I10 Essential (primary) hypertension; Z86.69 Personal history of other diseases of the nervous system and sense organs
CPT/HCPCS: 71260; 74177; Q9966; Q9967

== ENCOUNTER → 2019-04-15 | Outpatient (CLI) | payer BC ==
[~2019-04-15] MED LIST changes: -CONTRAST GIVEN. MC PRN; -IOHEXOL 240 MG/ML 50ML VIAL. PO ONE; -IOHEXOL 300 MG/ML 100ML VIAL. IV ONE; +LISI1TAB19 PO; -LISI1TAB5 PO
--- NOTE | 2019-04-15 09:40 | KCIC ---
Bilateral digital screening mammograms with 3-D tomosynthesis: Reason for examination: Routine screening. Comparison is made to previous studies dated 04/08/2018 and 03/11/2017. Bilateral mammograms in CC and oblique projections were obtained with 2-D imaging and 3-D tomosynthesis imaging on a Siemens Inspiration unit and reviewed on the workstation. Interpretation was made with the benefit of CAD. The skin and nipples show no abnormalities. No abnormal axillary lymph nodes are seen. The breast parenchyma shows scattered fatty and fibroglandular density. (Breast density: Category B.) There are small intramammary lymph nodes are again seen bilaterally. There are no dominant masses, suspicious calcifications or architectural distortion. Impression: No evidence of malignancy. Recommend routine screening. BI-RAD Category 2: Benign. "Our facility is accredited by the [employer] Mammography [employer]." This patient's information has been entered into a reminder system for the patient to be notified with the results of her examination and a target date for the next mammogram. Electronically signed by: Porsche Sommers MD (04/15/2019 9:37 AM) [id number]
== END | disposition home or self-care (01) ==
LOC: KCIC MAMMO 08:00
PROVIDERS: ATTEND Family Medicine
DX: Z12.31 Encounter for screening mammogram for malignant neoplasm of breast (principal)
CPT/HCPCS: 77063; 77067

== ENCOUNTER → 2019-05-17 | Outpatient (CLI) | payer BC ==
[2019-05-17] MEDS: IOHEXOL 300 MG/ML 100ML VIAL. IV ONE (09:00)
[2019-05-17] MEDS: IOHEXOL 240 MG/ML 50ML VIAL. PO ONE (09:00)
--- NOTE | 2019-05-18 08:38 | RAD ---
Examination: CT CHEST ABD PELVIS W/CONTRAST History: Malignant neoplasm of the sigmoid colon Comparison/Correlation: 11/01/2018 CT chest abdomen pelvis with contrast Findings: Axial images of the chest, abdomen, and pelvis were obtained following IV and oral contrast. Sagittal and coronal reformatted images were provided. Right-sided central infusion port catheter is present. Small bilateral pleural effusions are present. Left lower lobe bronchial tree calcifications are present. Left hilar calcified granulomata noted. Minimal linear atelectasis or scarring at the left lung base is present. Right middle lobe 0.6 cm diameter nodule is identified and increased in size compared to the prior exam by 0.2 cm. This is seen on axial image 36 series 2. Smaller punctate nodular density is present slightly more inferior and lateral as well. Low-attenuation involving the right hepatic lobe posterior segment inferiorly is present with associated linear densities which may represent suture material. Spleen, pancreas, adrenal glands, and kidneys are normal. Cholecystectomy noted in the interval. Diverticulosis is present. Circumferential wall thickening of the colon is present. Subtle hypodensity of the fat about the ascending colon is present. No loculated collections. Trace pelvic fluid noted. At the low pelvic level anterior abdominal wall, small hernia defect is present measuring 1.1 cm 2 no containing omental fat. No enlarged abdominal or pelvic lymph nodes. Pelvic lymph nodes produces described are decreased in the interval. Degenerative space narrowing of the lower thoracic spine suggesting degenerative changes of the lumbar spine noted. Minimal anterolisthesis of L4 in relation L5 noted. Impression: Small bilateral pleural effusions. Right middle lobe nodule is of slightly greater density, volume, and size compared to the previous exam of 11/01/2018. Low-attenuation and appearance of suture material at the right hepatic lobe posterior segment inferiorly is noted in the interval. Correlate with interval therapy. Circumferential wall thickening of the colon is noted. This is particularly evident at the proximal colon with subtle high density of the surrounding fat. Correlate for underlying colitis. Diverticulosis is present and no focal collection identified. Trace pelvic fluid. No enlarged nodes. PQRS Compliance Statement: One or more of the following individualized dose reduction techniques were utilized for this examination: 1. Automated exposure control 2. Adjustment of the mA and/or kV according to patient size 3. Use of iterative reconstruction technique Electronically signed by: Wesly West MD (05/18/2019 8:34 AM) [facility]
== END | disposition home or self-care (01) ==
LOC: CT 09:50
PROVIDERS: ATTEND Internal Medicine Hematology & Oncology
DX: C18.7 Malignant neoplasm of sigmoid colon (principal); J90 Pleural effusion, not elsewhere classified; R91.1 Solitary pulmonary nodule; K57.90 Diverticulosis of intestine, part unspecified, without perforation or abscess without bleeding; K46.9 Unspecified abdominal hernia without obstruction or gangrene; M48.04 Spinal stenosis, thoracic region; M43.16 Spondylolisthesis, lumbar region; Z90.49 Acquired absence of other specified parts of digestive tract
CPT/HCPCS: 71260; 74177; Q9966; Q9967

== ENCOUNTER → 2019-09-23 | Outpatient (CLI) | payer BC ==
[2019-09-23] MEDS: IOHEXOL 240 MG/ML 50ML VIAL. PO ONE (11:00)
[2019-09-23] MEDS: IOHEXOL 300 MG/ML 100ML VIAL. IV ONE (11:00)
--- NOTE | 2019-09-23 15:14 | RAD ---
EXAM: CT Chest, Abdomen, and Pelvis with IV contrast INDICATION: Colon cancer TECHNIQUE: Multi-detector row CT images were acquired from the thoracic inlet through the ischial tuberosities with the use of IV contrast. Sagittal and coronal images were acquired from the transaxial data. All CT scans performed at this facility utilize dose optimization techniques as appropriate to the exam, including the following: Automated exposure control and adjustment of the mA and/or KV according to patient size (this includes techniques or standardized protocols for targeted exams where dose is indication/reason for exam). IV CONTRAST: Administered ORAL CONTRAST: Administered COMPARISON: CT chest abdomen pelvis with IV contrast of 05/17/2019 and 07/28/2018 FINDINGS: CHEST: CARDIOVASCULAR: Right subclavian approach tunneled chest port remains present with tip near the cavoatrial junction. 2 vessel aortic arch with no aneurysm or evidence of flow-limiting stenosis or dissection. Normal heart size. No pericardial effusion.. MEDIASTINUM & ALEXA: No adenopathy or masses. LUNGS: Focal consolidation in the right middle lobe with air bronchograms is newly present. Previously evident peripheral right middle lobe pulmonary nodule is not as apparent. PLEURAL SPACE: No pleural effusions or pneumothorax. OSSEOUS & SOFT TISSUE: Unremarkable ABDOMEN/PELVIS: LIVER: Ill-defined hypodensity with curvilinear calcification is in hepatic segment 6 are present, compatible with posttreatment changes. BILIARY SYSTEM: Gallbladder is unremarkable. Bile ducts are not dilated. PANCREAS: Unremarkable SPLEEN: Unremarkable ADRENALS: Unremarkable KIDNEYS & URETERS: Unremarkable BLADDER: Partially decompressed. Mild diffuse wall thickening is nonspecific. No perivesical soft tissue stranding is seen. REPRODUCTIVE ORGANS: Unremarkable GASTROINTESTINAL: Colon diverticulosis. Surgical changes from previous colonic resection with anastomotic sutures near the rectosigmoid junction. The appendix is normal. MESENTERY/PERITONEUM/RETROPERITONEUM: Unremarkable VASCULAR: Unremarkable LYMPH NODES: No adenopathy OSSEOUS & SOFT TISSUES: Degenerative changes in the lumbar spine. No aggressive osseous lesions. Demineralization at S2 superior aspect of S3 is unchanged. IMPRESSION: 1. No findings suspicious for metastatic disease in the chest but new infiltrate in the right middle lobe is present, suggestive of pneumonia in the appropriate clinical context. Recommend clinical correlation. 2. Stable surgical changes from right hepatic lobe metastasis resection with no evidence of new or recurrent metastatic disease in the abdomen or pelvis. 3. Surgical changes from partial colonic resection with anastomotic sutures at the distal large bowel with no findings suspicious for developing mass or other evidence of recurrence. Electronically signed by: Gregory Gardner MD (09/23/2019 3:10 PM) [id number]
== END ==
LOC: CT 11:00
PROVIDERS: ATTEND Internal Medicine Hematology & Oncology
DX: C18.7 Malignant neoplasm of sigmoid colon (principal); K57.30 Diverticulosis of large intestine without perforation or abscess without bleeding; R91.8 Other nonspecific abnormal finding of lung field
CPT/HCPCS: 71260; 74177; Q9966; Q9967

== ENCOUNTER → 2019-11-07 | Outpatient (CLI) | payer BC ==
[2019-11-07 16:11] LABS: BASO % 0 % (0-3); EOS # 0.1 x10^3/uL (0.0-0.7); EOS % 3 % (0-3); HEMOGLOBIN 11.6 g/dL (12.0-15.5); LYMPH % 35 % (24-48); MEAN CORPUSCULAR HEMOGLOBIN 38 pg (25-35); MEAN CORPUSCULAR HGB CONC 34 g/dL (31-37); MEAN CORPUSCULAR VOLUME 112 fL (79-100); MONO # 0.6 x10^3/uL (0.0-1.1); MONO % 21 % (0-9); NEUT # 1.3 x10^3/uL (1.8-7.7); NEUT % 42 % (31-73); PLATELET COUNT 113 x10^3/uL (140-400); RED BLOOD COUNT 3.04 x10^6/uL (3.50-5.40); RED CELL DISTRIBUTION WIDTH 15.7 % (11.5-14.5)
[2019-11-07 16:22] LABS: BILIRUBIN,URINE NEGATIVE (NEG); CLARITY,URINE CLEAR; COLOR,URINE YELLOW; NITRITE,URINE NEGATIVE (NEG); PROTEIN,URINE NEGATIVE (NEG-TRACE); UROBILINOGEN,URINE 0.2 mg/dL (0.2 mg/dL)
[2019-11-07 16:28] LABS: BACTERIA,URINE MANY /HPF (0-FEW); SQUAMOUS EPITHELIAL CELL,UR FEW /LPF
[2019-11-07 16:29] LABS: RBC,URINE 0 /HPF (0-2); WBC,URINE RARE /HPF (0-4)
[2019-11-07 16:59] LABS: ALBUMIN 3.4 g/dL (3.4-5.0); ALBUMIN/GLOBULIN RATIO 0.9 (1.0-1.7); CALCIUM 8.6 mg/dL (8.5-10.1); CREATININE 0.9 mg/dL (0.6-1.0); GFR 74.1; POTASSIUM 4.3 mmol/L (3.5-5.1); TOTAL BILIRUBIN 0.5 mg/dL (0.2-1.0); TOTAL PROTEIN 7.2 g/dL (6.4-8.2)
[2019-11-07 17:09] LABS: % EOS 1 % (0-5); % LYMPHS 41 % (24-48); % MONOS 14 % (0-10); % SEGS 44 % (35-66)
[2019-11-07 17:11] LABS: PLT ESTIMATE DECREASED (ADEQUATE)
== END | disposition home or self-care (01) ==
LOC: LAB 15:42
PROVIDERS: ATTEND Internal Medicine Hematology & Oncology
DX: C18.7 Malignant neoplasm of sigmoid colon (principal)
CPT/HCPCS: 36415; 80053; 81001; 82378; 85007; 85025

== ENCOUNTER → 2019-12-13 | Outpatient (CLI) | payer BC ==
[~2019-12-13] MED LIST changes: +CONTRAST GIVEN. MC PRN; +IOHEXOL 240 MG/ML 50ML VIAL. PO ONE; +IOHEXOL 300 MG/ML 100ML VIAL. IV ONE; -LISI1TAB19 PO; +LISI1TAB37 PO
--- NOTE | 2019-12-13 14:15 | RAD ---
EXAM: CT Chest, Abdomen and Pelvis with IV contrast CLINICAL HISTORY: MALIGNANT NEOPLASM OF SIGMOID COLON COMPARISON: None. TECHNIQUE: Helical CT of the chest, abdomen and pelvis was performed following the administration of intravenous contrast. Axial, coronal and sagittal reformatted images were generated. ---PQRS compliance statement - One or more of the following individualized dose reduction techniques were utilized for this study: 1. Automated exposure control 2. Adjustment of the mA and/or kV according to patient size 3. Use of iterative reconstruction technique--- FINDINGS: Chest: Heart is not enlarged. No pericardial effusion. Mitral annular calcifications are seen. No pleural effusion or pneumothorax. Patchy bandlike opacities are seen in the middle lobe measuring approximately 2.8 x 1.3 cm, previously approximately 3.3 x 2.2 cm, and in general less dense compared to prior. Linear opacities in the lower lobes and lingula likely scarring/atelectasis. No mediastinal or hilar lymphadenopathy. No axillary lymphadenopathy. Thyroid is grossly unremarkable. Right port tip terminates within the distal SVC. Abdomen and Pelvis: Liver and biliary system: Lesion of hepatic low-attenuation the right hepatic lobe with associated calcifications likely posttreatment change. No new hepatic lesion is seen. Gallbladder is normal. No biliary ductal dilatation. Spleen: Spleen is borderline enlarged measuring 12.1 cm in length. Pancreas: Unremarkable Adrenal glands: Unremarkable Kidneys: Symmetric nephrograms. No focal renal lesion. No hydronephrosis. No hydroureter. Lymph nodes/retroperitoneum: No abdominal or pelvic lymphadenopathy by size criteria. Vessels: Aortic calcifications are seen. Bowel/Peritoneal cavity: Changes of prior colectomy with anastomotic suture line at the rectosigmoid junction. Colonic diverticulosis particularly in the sigmoid colon. Appendix is normal. No abdominal or pelvic ascites. Abdominal wall: Small fat-containing ventral abdominal hernia is seen. Bladder: Diffuse bladder wall thickening likely cystitis. Bones: Multilevel degenerative changes of the spine are seen. Trace anterolisthesis of L4 on L5. Focal demineralization S2-S3, possibly posttreatment change. IMPRESSION: 1. Postoperative changes of partial colectomy are seen with anastomosis at the rectosigmoid junction without obvious mass or nodularity to suggest local recurrence.. No thoracic, abdominal or pelvic lymphadenopathy or other findings of metastatic disease. 2. Consolidation in the middle lobe appears less dense on today's examination and slightly smaller in size. This may represent residual consolidative process, developing scarring or atelectasis however recommend close attention on follow-up to exclude underlying mass or metastases. 3. Hepatic hypodensity with calcifications likely posttreatment change. Electronically signed by: Jason Encinas MD (12/13/2019 2:12 PM) [id number]
== END | disposition home or self-care (01) ==
LOC: CT 07:58
PROVIDERS: ATTEND Internal Medicine Hematology & Oncology
DX: C18.7 Malignant neoplasm of sigmoid colon (principal); I70.0 Atherosclerosis of aorta; I70.90 Unspecified atherosclerosis; K57.30 Diverticulosis of large intestine without perforation or abscess without bleeding; K43.9 Ventral hernia without obstruction or gangrene; K46.9 Unspecified abdominal hernia without obstruction or gangrene; M47.9 Spondylosis, unspecified; M43.16 Spondylolisthesis, lumbar region; M81.8 Other osteoporosis without current pathological fracture; Z90.49 Acquired absence of other specified parts of digestive tract
CPT/HCPCS: 71260; 74177; Q9966; Q9967